=== PATIENT | male | born 1975 ===

== ENCOUNTER 2020-02-01 10:12 | Outpatient (CLI) | payer OTHER, SELFPAY ==
[2020-02-07 23:04] LABS: SARS-CoV-2 RNA Undetected (Undetected); SARS-CoV-2 Specimen Source Nasopharynx
== END 2020-02-01 10:32 ==
PROVIDERS: Visit Provider Internal Medicine Sleep Medicine
DX: Z11.59 Encounter for screening for other viral diseases (principal)
CPT/HCPCS: U0003